=== PATIENT | female | born 1990 | race Hispanic/Latino ===

== ENCOUNTER 2017-04-03 16:07 | Outpatient (CLI) | payer MEDICAID ==
[2017-04-03] MEDS ORDERED: LACTATED RINGERS 500 ML IV ONE (16:35)
[2017-04-03 17:04] LABS: Bacteria,Urine 1+ /HPF (Negative); Bilirubin,Urine NEG (Negative); Blood,Urine SM (Negative); Ketones,Urine NEG (Negative); Leukocyte Esterase,Urine NEG (Negative); Mucus,Urine FEW /HPF; Nitrite,Urine NEG (Negative); Protein,Urine <15 mg/dL mg/dL (Negative)
[2017-04-03 19:34] VITALS: BP 112/73
[2017-04-03 19:52] LABS: Basophils % (Auto) 0.1 % (0.0-1.8); Eosinophils % (Auto) 0.5 % (0.0-4.3); Hematocrit 28.5 % (30.3-42.9); Hemoglobin 9.3 gm/dl (10.1-14.3); Mean Corpuscular HGB Conc 33 % (30-34); Mean Corpuscular Volume 78 fl (79-97); Platelet Count 123 K/mm3 (140-440); Red Blood Count 3.67 M/mm3 (3.65-5.03); White Blood Count 8.4 K/mm3 (4.5-11.0)
[2017-04-03 19:53] LABS: Mean Corpuscular Hemoglobin 26 pg (28-32)
--- NOTE | 2017-04-04 07:59 | Ultrasound Report ---
OB ULTRASOUND History: well being. Technique: Transabdominal ultrasound with Doppler interrogation. Gestation: Single Position: Breech Amniotic Fluid: Within normal limits Placenta: Anterior Placental Grade: 0 No evidence for abruption. Heart Rate: 154 BPM Cervical length: 3.8 cm (Normal > 3 cm) NEUROANATOMY VISUALIZED: Choroid Plexus Cisterna Magnum Cerebellum Lateral Ventricle ANATOMY VISUALIZED: Stomach Kidneys Bladder Diaphragm 4 Chamber Heart Heart 3 Vessel Cord Abd. Cord Insert SPINE VISUALIZED: Limited spine due to position The following are not demonstrated due to maternal body habitus or lie: Spine BPD: 8.6 cm = 34 w 4 d HC: 31.7 cm = 35 w 4 d AC: 30.8 cm = 34 w 5 d FL: 6.1 cm = 31 w 4 d HC/AC Ratio: 1.03 Cephalic Index: 77.0 Estimated Weight: 2331 grams Clinical age = 32 w 1 d EDC: 05/28/17 US Gest. Age = 34 w 1 d EDC: 05/14/17
== END 2017-04-03 20:09 | disposition home or self-care (01) ==
LOC: TRG 16:07
PROVIDERS: ATTEND Obstetrics & Gynecology
DX: O32.1XX0 Maternal care for breech presentation, not applicable or unspecified (principal); O47.03 False labor before 37 completed weeks of gestation, third trimester; Z3A.32 32 weeks gestation of pregnancy; Z3A.34 34 weeks gestation of pregnancy
CPT/HCPCS: 36415; 59025; 76805; 81001; 82731; 85025

== ENCOUNTER 2017-05-17 03:38 | Outpatient (CLI) | payer MEDICAID ==
[2017-05-17 03:59] VITALS: BP 121/77
[2017-05-17] MEDS ORDERED: VISTARIL PO ONE (05:54)
== END 2017-05-17 06:12 | disposition home or self-care (01) ==
LOC: TRG 03:38
PROVIDERS: ATTEND Obstetrics & Gynecology
DX: O62.9 Abnormality of forces of labor, unspecified (principal); Z3A.38 38 weeks gestation of pregnancy
CPT/HCPCS: Q0177

== ENCOUNTER 2017-05-17 09:53 | Inpatient (IN) | payer MEDICAID ==
--- NOTE | 2017-05-17 10:38 | History and Physical Report ---
History of Present Illness Date of examination: 05/17/17 Date of admission: 05/17/2017 Chief complaint: 26 yo at 38wk 3d admitted 4cm in active labor. MBT O pos, Imm, GBS neg. History of present illness: Remainder of H&P from [facility] and confirmed today OB Intake Ethnicity: Restoration: chrisian Occupation: n/a Father of baby: Tai MOSES contact #: [phone] Vital Signs Height: 54.50 in. Weight (lb): 131 BMI: 31.1 Pre- Weight: 131 BP: 108/ 72 mm Hg Ur. Protein: negative Ur. Glucose: negative Chief Complaint/Current Status: pt presents for missed period visit, last pap: approx. 2 years ago, nl per pt last mammo: n/a---tlw Menstrual History Regularity: regular Menses every: 28-30 days Duration: 5 LMP: 08/21/2016 LMP reliability: definite LMP character: normal test type: urine test Date: 10/28/2016 BC at conception: none Planned ? no EDC Calculations LMP: 05/28/2017 EDC Confirmation: 05/28/2017 Gestational Age: 9 5/7 weeks Past History : 4 Term Births: 2 Living Children: 2 Para: 2 Aborta: 1 Elect. Ab: 1 # 1 Delivery date: 2010 Weeks Gestation: 40+2 labor: no Delivery type: Anesthesia type: epidural Delivery location: [facility] Infant Sex: Male weight: 8#7 Comments: no complications # 2 Delivery date: 2012 Weeks Gestation: 39+2 labor: no Delivery type: Anesthesia type: epidural Delivery location: [facility] Sex: Male weight: 8#1 Past Medical History: mild "stroke" 10/2014 - left sided numbness, PHH, released after 1 day - pt had no f/u after. Migraines - no aura Past Surgical History: Negative Past Surgical History Past Medical History Surgery (Non-equipment mechanic): Negative Past Surgical History Abnormal PAP: negative MAIL Exposure: negative Infertility: negative Uterine Anomaly: negative Uterine Surgery (not C/S): negative Other Gynecologic Problems: negative Infection History Hx of STD: none HIV Risk Eval: low risk Hepatitis B Risk Eval: low risk Personal hx. of genital herpes: no Partner hx. of genital herpes: no Rash, Viral, or Febrile illness since last LMP? no Varicella/Chicken Pox Status: Previous Disease TB Risk: no Genetic History Congenital Heart Defect: Mom: no Dad: no Opal Disease: Mom: no Dad: no Thalassemia Mom: no Dad: no Neural Tube Defect Mom: no Dad: no Down's Syndrome Mom: no Dad: no Himanshu-Sachs Mom: no Dad: no Sickle Cell Disease/Trait Mom: no Dad: no Hemophilia Mom: no Dad: no Muscular Dystrophy Mom: no Dad: no Cystic Fibrosis Mom: no Dad: no [place] Chorea Mom: no Dad: no Mental Retardation Mom: no Dad: no Fragile X Mom: no Dad: no Other Genetic/Chromosomal Disorder Mom: no Dad: no Child w/other defect Mom: no Dad: no Enviromental Exposures Xray Exposure: no Medication, drug, or alcohol use since LMP: no Chemical/Other Exposure: no Exposure to Cat Liter: no Hx of Parvovirus (Fifth Disease): no Occupational Exposure to Children: none Active Medications (reviewed today): None Current Allergies (reviewed today): * SHRIMP (Critical) Laboratory Results Date/Time Collected: 10/28/2016 Routine Urinalysis Color: yellow Appearance: cloudy Leukocytes: negative Nitrite: negative Urobilinogen: negative Protein: negative Blood: negative Ketone: negative Bilirubin: negative Glucose: negative Urine HCG: positive Review of Systems General Denies fever, chills, sweats, anorexia, fatigue, weakness, malaise, weight loss and sleep disorder. Denies nausea, vomiting, headache, swelling of legs, abdominal pain, vaginal discharge, vaginal bleeding and contractions. Denies vaginal discharge, incontinence, dysuria, hematuria, urinary frequency, amenorrhea, menorrhagia, abnormal vaginal bleeding, pelvic pain, genital sores, decreased libido, painful periods, painful sex, urinary urgency, hot flashes, vaginal dryness, vaginal itching and vaginal odor. CV Denies chest pains, palpitations, syncope, dyspnea on exertion, orthopnea, PND and peripheral edema. Resp Denies cough, dyspnea at rest, excessive sputum, hemoptysis, wheezing and pleurisy. GI Denies nausea, vomiting, diarrhea, constipation, change in bowel habits, abdominal pain, melena, hematochezia, jaundice, gas/bloating, indigestion/ heartburn, dysphagia and odynophagia. Endo Denies cold intolerance, heat intolerance, polydipsia, polyphagia, polyuria and unusual weight change. Breast Denies left breast lump, right breast lump, nipple discharge, bloody discharge from nipple, breast pain, abnormal mammogram and breast enlargement. MS Denies back pain, joint pain, joint swelling, muscle cramps, muscle weakness, stiffness, arthritis, sciatica, restless legs, leg pain at night and leg pain with exertion. Derm Denies rash, itching, dryness and suspicious lesions. Neuro Denies paralysis, paresthesias, headache, seizures, tremors, vertigo, transient blindness, frequent falls, frequent headaches and difficulty walking. Psych Denies depression, anxiety, irritability and mood swings. Eyes Denies blurring, diplopia, irritation, discharge, vision loss, eye pain and photophobia. ENT Denies earache, ear discharge, tinnitus, decreased hearing, nasal congestion, nosebleeds, sore throat and hoarseness. Allergy Denies urticaria, allergic rash, hay fever and recurrent infections. Heme Denies abnormal bruising, bleeding and enlarged lymph nodes. PHYSICAL EXAM HEENT: PERRLA, normal conjunctiva, external nose and nasal mucosa normal, oropharynx clear Neck/Thyroid: supple, thyroid normal Skin no significant abnormal lesions or rashes Chest: respiratory effort normal, clear to auscultation Breasts: normal without skin changes or masses CV: regular, normal S1-S2, no murmur, no rub, no gallop Abdomen: normal bowel sounds, soft, nontender, no HSM Musculoskeletal: grossly normal ROM in joints, no joint tenderness or muscle weakness Neuro: grossly normal DTRs, sensation, strength, cranial nerves Extremities: no clubbing, cyanosis, or edema GLAZIER [employer]UCTURAL GLASS Exams Vulva/Vagina: No lesions, normal BUS, normal rugae Cervix: No lesions; no cervical motion tenderness Uterus: normal size and position, midline, mobile Fundal Ht: 8-10 Adnexae: no masses or tenderness Rectovaginal: no masses or tenderness Flowsheet View for Follow-up Visit Estimated weeks of gestation: 9 57 Weight: 131 Blood pressure: 108 / 72 Urine protein: negative Urine glucose: negative Urine nitrite: negative Fundal height: 8-10 Past History - Obstetrical History : 4 Medications and Allergies Allergies Allergy/AdvReac Type Severity Reaction Status Date / Time shrimp Allergy Severe Hives Verified 04/03/17 16:35 Home Medications Medication Instructions Recorded Confirmed Last Taken Type No Known Home Medications [No 05/17/17 05/17/17 Unknown History Reported Home Medications] - Vital Signs Vital signs: Vital Signs Pulse BP 91 H 121/79 05/17/17 10:24 05/17/17 10:24 Temp Pulse Resp BP Pulse Ox 91 H 121/79 05/17/17 10:24 05/17/17 10:24 Results All other labs normal. Assessment and Plan - Patient Problems (1) Active labor at term Current Visit: Yes Status: Acute Plan to address problem: deliver (2) 38 weeks gestation of Current Visit: Yes Status: Acute
[2017-05-17] MEDS ORDERED: PITOCin/NS 30 UNIT/500ML 30 UNITS/500 ML BAG IV SCH (11:00)
[2017-05-17] MEDS ORDERED: MINERAL OIL PO PRN (11:00)
[2017-05-17] MEDS ORDERED: SUBLIMAZE IV PRN (11:00)
[2017-05-17] MEDS ORDERED: STADOL IV PRN (11:00)
[2017-05-17] MEDS ORDERED: ePHEDrine SULFATE IV PRN ×2 (11:00→13:48)
[2017-05-17] MEDS ORDERED: ZOFRAN IV PRN (11:00)
[2017-05-17] MEDS ORDERED: PITOCin/NS 20 UNIT/1000ML DRIP 20 UNITS/1,000 ML BAG IV SCH ×2 (11:00→17:49)
[2017-05-17] MEDS ORDERED: NARCAN 0.4 MG/1 ML IV PRN (11:00)
[2017-05-17] MEDS ORDERED: XYLOCAINE 2% INFILTRATI ONE (11:30)
[2017-05-17] MEDS ORDERED: BRETHINE SUB-Q PRN (11:30)
[2017-05-17] MEDS ORDERED: BRETHINE IVP PRN (11:30)
[2017-05-17 11:35] LABS: Hematocrit 27.9 % (30.3-42.9); Hemoglobin 8.9 gm/dl (10.1-14.3); Mean Corpuscular HGB Conc 32 % (30-34); Mean Corpuscular Volume 70 fl (79-97); Platelet Count 142 K/mm3 (140-440); Red Blood Count 3.97 M/mm3 (3.65-5.03); Red Cell Distribution Width 15.4 % (13.2-15.2); White Blood Count 11.1 K/mm3 (4.5-11.0)
[2017-05-17 11:42] LABS: Mean Corpuscular Hemoglobin 22 pg (28-32)
[2017-05-17] MEDS: LACTATED RINGERS 1,000 ML IV SCH ×2 (12:10→13:00)
[2017-05-17] MEDS ORDERED: NARCAN 2 MG/2 ML IV PRN (13:48)
--- NOTE | 2017-05-17 13:48 | Anesthesia Consultation ---
Anesthesia Consult and Med Hx Date of service: 05/17/17 - Airway Anesthetic Teeth Evaluation: Good ROM Head & Neck: Adequate Mental/Hyoid Distance: Adequate Mallampati Class: Class II Intubation Access Assessment: Probably Good - Pre-Operative Health Status ASA Pre-Surgery Classification: ASA2 Proposed Anesthetic Plan: Epidural, Spinal - Pulmonary Hx Asthma: No COPD: No Hx Pneumonia: No - Cardiovascular System Hx Hypertension: No - Central Nervous System Hx Seizures: No Hx Psychiatric Problems: No - Endocrine Hx Renal Disease: No Hx End Stage Renal Disease: No Hx Hypothyroidism: No Hx Hyperthyroidism: No - Hematic Hx Anemia: No Hx Sickle Cell Disease: No - Other Systems Hx Alcohol Use: No
[2017-05-17] MEDS ORDERED: fentaNYL-BUPIV 2 MCG/ML-0.125% 200 MCG/100 ML BAG EPIDURAL SCH (14:00)
--- NOTE | 2017-05-17 16:22 | Procedure Note ---
OB Delivery Note - Delivery Date of Delivery: 05/17/17 [employer] Technician: ANITHA BHATTI Estimated blood loss: other (450) - Vaginal Delivery presentation: vertex Delivery position: OA (MARCE) Intrapartum events: none Delivery induction: none Delivery augmentation: rupture of membranes, pitocin Delivery monitor: external FHT, external uterine Route of delivery: Delivery placenta: spontaneous Delivery cord: 3 umbilical vessels Episiotomy: none Delivery laceration: none Anesthesia: epidural Delivery comments: Male del over intact perineum, anterior shoulder delivered without difficulty. infant placed skin to skin on mother's abdomen. 3 vessel cord clamped and cut. cord blood collected. placenta del intact and complete, increased bleeding noted during third stage but resolved after del of placenta - Fundus firm and bleeding scant. no lacerations. EBL 450, wt 8#11oz, apgars 8/ 9. mother and remain LDR stable. - Infant A at 1 minute: 8 at 5 minutes: 9 Gender: Male (8#11)
[2017-05-17] MEDS ORDERED: LANSINOH TP PRN (17:49)
[2017-05-17] MEDS ORDERED: DULCOLAX PR PRN (17:49)
[2017-05-17] MEDS ORDERED: TUCKS PAD TP PRN (17:49)
[2017-05-17] MEDS ORDERED: BENADRYL PO PRN (17:49)
[2017-05-17] MEDS ORDERED: NORCO 5/325 PO PRN (17:49)
[2017-05-17] MEDS ORDERED: METHERGINE IM PRN (17:49)
[2017-05-17] MEDS ORDERED: SODIUM CHLORIDE FLUSH SYRINGE 10 ML IV SCH (17:49)
[2017-05-17] MEDS ORDERED: PHENERGAN PO PRN (17:49)
[2017-05-17] MEDS ORDERED: TYLENOL PO PRN (17:49)
[2017-05-17] MEDS ORDERED: MILK OF MAGNESIA PO PRN (17:49)
[2017-05-17] MEDS: MOTRIN PO SCH (18:14)
[2017-05-17] MEDS ORDERED: CYTOTEC PR PRN (19:00)
[2017-05-18] MEDS: MOTRIN PO SCH ×4 (01:40→23:08)
[2017-05-18] MEDS: FEOSOL PO SCH ×4 (01:48→23:08)
[2017-05-18] MEDS: COLACE PO SCH ×3 (01:48→23:08)
[2017-05-18] MEDS ORDERED: BOOSTRIX IM ONE (06:00)
--- NOTE | 2017-05-18 06:44 | Progress Note ---
Assessment and Plan pt resting w/o complaint VSS FF below umb Lochia small Perineum intact H&H pending Pt is w/o s/sx of anemia despite having chronic anemia. PO iron ordered. Doing well s/p vag del Baby stable per mom in NICU P: continue pathway d/c tomorrow Subjective - Subjective Date of service: 05/18/17 (no c/o voiced) Patient reports: appetite normal, voiding normally, pain well controlled, ambulating normally [place]: in NICU Objective - Vital Signs Latest vital signs: Vital Signs Temp Pulse Resp BP Pulse Ox 05/17/17 20:00 98.2 F 86 18 123/86 05/17/17 18:45 98.8 F 74 22 120/78 05/17/17 17:57 97.2 F L 86 16 133/88 05/17/17 17:54 74 100 05/17/17 17:49 79 99 05/17/17 17:44 91 H 99 05/17/17 17:42 87 123/84 05/17/17 17:39 88 99 05/17/17 17:34 88 100 05/17/17 17:29 88 100 05/17/17 17:27 77 120/81 05/17/17 17:24 95 H 99 05/17/17 17:19 88 99 05/17/17 17:14 97 H 99 05/17/17 17:12 95 H 128/88 05/17/17 17:09 102 H 100 05/17/17 17:04 84 100 05/17/17 17:00 97.1 F L 89 15 126/88 100 05/17/17 16:59 86 100 05/17/17 16:57 86 126/88 05/17/17 16:42 88 121/86 05/17/17 16:27 93 H 125/84 05/17/17 16:12 96 H 108/69 05/17/17 16:08 100 H 115/75 05/17/17 15:44 94 H 106/70 05/17/17 15:43 94 H 100 05/17/17 15:38 85 99 05/17/17 15:33 89 100 05/17/17 15:28 82 102/66 98 05/17/17 15:23 85 100 05/17/17 15:18 81 99 05/17/17 15:13 83 99 05/17/17 15:12 83 93/55 05/17/17 15:08 79 99 05/17/17 15:03 94 H 100 05/17/17 14:58 84 99 05/17/17 14:57 84 105/68 05/17/17 14:53 80 99 05/17/17 14:48 83 99 05/17/17 14:43 77 99 05/17/17 14:42 75 98/59 05/17/17 14:38 77 99 05/17/17 14:33 76 99 05/17/17 14:28 74 99 05/17/17 14:25 71 98/61 05/17/17 14:23 76 101/59 100 05/17/17 14:21 77 87/57 05/17/17 14:19 88 102/70 05/17/17 14:18 84 100 05/17/17 14:17 81 100/68 05/17/17 14:15 82 104/67 05/17/17 14:13 81 105/69 100 05/17/17 14:11 88 107/69 05/17/17 14:09 83 110/76 05/17/17 14:08 80 100 05/17/17 14:07 90 118/77 05/17/17 14:05 78 114/72 05/17/17 14:03 80 126/73 99 05/17/17 14:01 108 H 140/69 05/17/17 13:59 85 101/70 05/17/17 13:58 78 100 05/17/17 13:57 85 110/74 05/17/17 13:55 84 114/74 05/17/17 13:53 84 109/68 100 05/17/17 13:41 83 128/83 05/17/17 13:25 92 H 132/86 05/17/17 13:11 92 H 131/85 05/17/17 12:56 51 L 138/83 05/17/17 12:46 88 131/80 05/17/17 12:21 97.0 F L 107 H 18 96/71 05/17/17 11:56 107 H 96/71 05/17/17 10:24 91 H 121/79 Intake and Output 05/17/17 05/17/17 05/18/17 14:59 22:59 06:59 Intake Total 1000 245 425 Output Total 1000 400 Balance 1000 -755 25 Intake: IV 1000 125 425 Lactated Ringers 1,000 ml 1000 @ 125 mls/hr IV DIRECT NAVIN Rx#:[id number] PITOCin/NS 20 UNIT/1000ML 125 425 DRIP 20 units In 1,000 ml @ 125 mls/hr IV DIRECT NAVIN Rx#:[id number] Oral 120 Output: Urine 1000 400 Indwelling Catheter 1000 Void 400 Other: Total, Intake Amount 120 Total, Output Amount 400 400 Weight 153 lb Estimated Blood Loss 450 Patient Weight 05/18/17 06:59 Weight 153 lb - Exam Breasts: Present: normal Cardiovascular: Present: Regular rate Lungs: Present: Normal air movement Abdomen: Present: normal appearance, soft Uterus: Present: normal, firm, fundal height below umbilicus Extremities: Present: normal Deep Tendon Reflex Grade: Normal +2 - Labs Labs: Abnormal lab results 05/17/17 Range/Units 10:30 WBC 11.1 H (4.5-11.0) K/mm3 Hgb 8.9 L (10.1-14.3) gm/dl Hct 27.9 L (30.3-42.9) % MCV 70 L (79-97) fl MCH 22 L (28-32) pg RDW 15.4 H (13.2-15.2) %
[2017-05-18 07:44] LABS: Hematocrit 26.8 % (30.3-42.9); Hemoglobin 8.7 gm/dl (10.1-14.3)
[2017-05-18] MEDS: PRENATAL VITAMIN PO SCH (10:47)
--- NOTE | 2017-05-18 10:47 | Progress Note ---
Subjective Date of service: 05/18/17 Interval history: 1st day after normal vaginal delivery Patient is in the bed, comfortable. pain is well controlled with pain meds. Ambulated well. No residual neurological deficit. No anesthesia complications Objective - Constitutional Vitals: Vital Signs - 12hr 05/18/17 05/18/17 05/18/17 00:20 04:10 08:48 Temperature 98.7 F 97.8 F 97.7 F Pulse Rate 98 H 86 70 Respiratory 18 18 18 Rate Blood Pressure 107/69 124/80 119/88 - Labs CBC & Chem 7: 05/18/17 07:08 Labs: Abnormal lab results 05/17/17 05/18/17 Range/Units 10:30 07:08 WBC 11.1 H (4.5-11.0) K/mm3 Hgb 8.9 L 8.7 L (10.1-14.3) gm/dl Hct 27.9 L 26.8 L (30.3-42.9) % MCV 70 L (79-97) fl MCH 22 L (28-32) pg RDW 15.4 H (13.2-15.2) %
[2017-05-19] MEDS: MOTRIN PO SCH (05:40)
--- NOTE | 2017-05-19 09:10 | Discharge Summary ---
Providers - Providers Date of Admission: 05/17/17 09:54 Date of discharge: 05/19/17 (pt very tearful Baby remains in NICU) Attending physician: NATHAN WILSON Primary care physician: NATHAN WILSON Hospitalization Reason for admission: active labor Delivery: Episiotomy: none Laceration: none Incision: normal Other procedures: none complications: none Discharge diagnosis: IUP at term delivered [place] baby: male Hospital course: uncomplicated vaginal delivery Pt stable States NB is still in NICU with respiratory issues. VSS FF below umb Lochia small Pt has chronic anemia No s/sx @ present RX po iron @ d/c Doing well with exception of concerns over NB P: d/c today with instructions RX provided Condition at discharge: Good Disposition: DC-01 TO HOME OR SELFCARE - Discharge Diagnoses (1) (normal spontaneous vaginal delivery) Status: Acute Comment: rto 4-6 weeks PP care Plan - Discharge Medications Prescriptions: Ferrous Sulfate [Feosol 325 MG tab] 325 mg PO TID #90 tablet Ibuprofen [Motrin 800 MG tab] 800 mg PO Q8HR PRN #30 tablet PRN Reason: Pain Lidocain2.5%/Prilocai2.5% [Emla] 5 gm TP ONCE PRN #1 tube PRN Reason: Pain - Provider Discharge Summary Activity: routine, no sex for 6 weeks, no heavy lifting 4 weeks, no strenuous exercise Diet: routine Instructions: routine Additional instructions: [] Smoking cessation referral if applicable(refer to patient education folder for contact #) [] Refer to [facility] Call your doctor immediately for: * Fever > 100.5 * Heavy vaginal bleeding ( >1 pad per hour) * Severe persistent headache * Shortness of breath * Reddened, hot, painful area to leg or breast * Drainage or odor from incision. * Keep incision clean and dry at all times and follow doctor's instructions regarding bathing/showering - Follow up plan Follow up: NATHAN WILSON MD [Primary Care Provider] - 06/16/17 (Congratulations! Please call [phone] to schedule your visit in 4 weeks. Take medications as prescribed. Call with any concerns.)
[2017-05-19] MEDS: PRENATAL VITAMIN PO SCH (11:40)
[2017-05-19] MEDS: COLACE PO SCH (11:40)
[2017-05-19 13:16] VITALS: BP 130/89
== END 2017-05-19 11:50 | disposition home or self-care (01) | DRG 775 ==
LOC: TRG 09:53 → LD 09:54 → OB 18:37
PROVIDERS: ADMIT Obstetrics & Gynecology; ATTEND Obstetrics & Gynecology
PROC: 10E0XZZ Delivery of Products of Conception, External Approach (ICD-10-PCS; principal; 2017-05-17)
PROC: 00HU33Z Insertion of Infusion Device into Spinal Canal, Percutaneous Approach (ICD-10-PCS; 2017-05-17)
PROC: 3E0R3CZ (ICD-10-PCS; 2017-05-17)
DX: O99.02 Anemia complicating childbirth (principal); D64.9 Anemia, unspecified; Z3A.38 38 weeks gestation of pregnancy; Z37.0 Single live birth; Z91.013 Allergy to seafood
CPT/HCPCS: 36415; 85014; 85018; 85027; 86850; 86900; 86901; 99211; G0463; J2590; J3010; J7120

== ENCOUNTER 2018-10-11 19:00 | Outpatient (CLI) | payer MEDICAID ==
[2018-10-11] MEDS ORDERED: LACTATED RINGERS 1,000 ML IV ONE ×2 (20:40→23:09)
[2018-10-11 21:10] LABS: Bacteria,Urine 1+ /HPF (Negative); Bilirubin,Urine NEG (Negative); Blood,Urine NEG (Negative); Color,Urine Yellow (Yellow); Mucus,Urine FEW /HPF; Protein,Urine <15 mg/dL mg/dL (Negative)
[2018-10-11] MEDS ORDERED: LACTATED RINGERS 500 ML IV SCH (23:00)
[2018-10-11 23:14] VITALS: BP 121/72
[2018-10-11] MEDS ORDERED: BRETHINE SUB-Q SCH (23:45)
== END 2018-10-12 00:15 | disposition home or self-care (01) ==
LOC: TRG 19:00
PROVIDERS: ATTEND Obstetrics & Gynecology
DX: O47.03 False labor before 37 completed weeks of gestation, third trimester (principal); O62.8 Other abnormalities of forces of labor; O26.893 Other specified pregnancy related conditions, third trimester; M54.5 Low back pain; Z3A.34 34 weeks gestation of pregnancy
CPT/HCPCS: 59025; 81001; 96360; 96361; 96372; J3105; J7120

== ENCOUNTER 2019-10-15 16:48 | Outpatient (CLI) | payer MEDICAID ==
[2019-10-15 17:14] VITALS: BP 116/74
[2019-10-15] MEDS ORDERED: ACETAMINOPHEN 500 MG TAB PO ONE (17:50)
== END 2019-10-15 18:04 | disposition home or self-care (01) ==
LOC: TRG 16:48
PROVIDERS: ATTEND Obstetrics & Gynecology
DX: O47.02 False labor before 37 completed weeks of gestation, second trimester (principal); Z3A.35 35 weeks gestation of pregnancy
CPT/HCPCS: 59025

== ENCOUNTER 2019-10-26 03:46 | Outpatient (CLI) | payer MEDICAID ==
[2019-10-26] MEDS ORDERED: LACTATED RINGERS 1,000 ML IV ONE (06:57)
[2019-10-26] MEDS ORDERED: LACTATED RINGERS 1,000 ML ONE (06:59)
--- NOTE | 2019-10-26 08:22 | Progress Note ---
Assessment and Plan patient in triage for continued ctx, sve by this wine steward/stewardess /-3 (cx to the right and slightly posterior.) As it is my first SVE and she continues to c/o painful ctx, plan discussed for therapeutic rest. pt and s/o agree with plan. discussed with triage nurse. - Patient Problems (1) 36 weeks gestation of Current Visit: Yes Status: Acute Subjective - Subjective Date of service: 10/26/19 Principal diagnosis: IUP @ 36+6 weeks, r/o labor Patient reports: movement normal, contractions (ctx feeling about the same from time of admission), no loss of fluid, no vaginal bleeding Objective - Vital Signs Vital Signs: Vital Signs - 12hr 10/26/19 04:05 Temperature 98.1 F Respiratory 22 Rate - Exam Cardiovascular: Regular rate Lungs: Normal air movement Abdomen: Present: normal appearance, soft Vulva: both: normal Uterus: Present: normal, fundal height above umbilicus FHR: category 1 Uterine Contraction Monitor Mode: External Cervical Dilatation: 4 Cervical Effacement Percentage: 60 station: -3 Uterine Contraction Frequency (min): 4-6 Uterine Contraction Duration: 60 Uterine Contraction Pattern: Regular Uterine Tone Measurement Phase: Contraction Uterine Contraction Intensity: Moderate Extremities: normal
[2019-10-26] MEDS ORDERED: BUTORPHANOL 2 MG/1 ML INJ IV PRN (09:00)
[2019-10-26] MEDS ORDERED: LACTATED RINGERS 1,000 ML IV SCH (09:00)
[2019-10-26] MEDS ORDERED: PROMETHAZINE 25 MG TAB PO PRN (09:00)
[2019-10-26 12:35] VITALS: BP 109/67
--- NOTE | 2019-10-26 13:19 | Event Note ---
Date: 10/26/19 no change in SVE afer several hours of rest. patient denies needing pain medication, does not appear to be uncomfortable. Pt concerned over advanced dilatation and leaving only to return in labor. pt wishes to ambulate x 1 hour. RN will recheck, if no change d/c home. pt agrees with plan. rn aware of plan.
== END 2019-10-26 15:11 | disposition home or self-care (01) ==
LOC: TRG 03:46 → LD 08:27 → TRG 15:11
PROVIDERS: ATTEND Obstetrics & Gynecology
DX: O62.9 Abnormality of forces of labor, unspecified (principal); Z3A.36 36 weeks gestation of pregnancy
CPT/HCPCS: J7120